=== PATIENT | female | born 1970 | race African-American/Black ===

== ENCOUNTER 2019-07-26 09:19 | Emergency (ER) | payer OTHER ==
[~2019-07-26] VITALS: Ht 160 cm; Wt 99.8 kg
--- OUTSIDE RECORDS SUMMARY | 2019-07-26 09:22 | XMS REPORT ---
[facility] Address Unknown Phone Unavailable Care Team Providers Care Front Office Associate Name Role Phone Unavailable Unavailable Payers Payer Name Policy Type Policy Number Effective Date Expiration Date Problems This patient has no known problems. Allergies, Adverse Reactions, Alerts Allergy Name Allergy Type Status Severity Reaction(s) Onset Date Inactive Date Treating Clinician Comments No Known Allergies DA Active U 2017-01-16 00:00:00 Medications This patient has no known medications. Encounters Start Date/Time End Date/Time Encounter Type Admission Type Attending Clinicians Care Facility Care Department Encounter ID 2018-08-28 00:00:00 2018-08-28 00:00:00 Outpatient [facility] [id number] 2018-06-11 00:00:00 2018-06-11 00:00:00 Outpatient [facility] [id number] 2018-06-07 00:00:00 2018-06-07 00:00:00 Outpatient [facility] [id number] 2018-05-29 10:15:45 2018-05-29 10:15:45 Outpatient [facility] [id number] 2018-04-30 00:00:00 2018-04-30 00:00:00 Outpatient [facility] [id number] 2018-04-28 18:19:00 2018-04-28 18:19:00 Emergency [id number] 2018-04-26 00:00:00 2018-04-26 00:00:00 Outpatient [facility] [id number] 2018-03-27 08:23:00 2018-03-27 08:23:00 Outpatient [facility] [id number] 2018-03-20 00:00:00 2018-03-20 00:00:00 Outpatient [facility] [id number] 2018-03-20 00:00:00 2018-03-20 00:00:00 Outpatient [facility] [id number] 2018-03-19 00:00:00 2018-03-19 00:00:00 Outpatient [facility] [id number] 2018-02-21 09:15:26 2018-02-21 09:15:26 Outpatient [facility] [id number] 2018-02-07 11:45:46 2018-02-07 11:45:46 Emergency [facility] [id number] 2018-02-07 10:22:03 2018-02-07 10:22:03 Emergency [facility] [id number] 2018-01-18 09:39:30 2018-01-18 09:39:30 Outpatient [facility] [id number] 2018-01-18 00:00:00 2018-01-18 00:00:00 Outpatient [facility] [id number] 2018-01-11 12:41:30 2018-01-11 12:41:30 Outpatient [facility] [id number] 2018-01-09 07:39:00 2018-01-09 07:39:00 Outpatient [facility] [id number] 2017-11-26 00:00:00 2017-11-26 00:00:00 Outpatient [facility] [id number] 2017-11-23 08:33:20 2017-11-23 08:33:20 Outpatient [facility] [id number] 2017-11-13 00:00:00 2017-11-13 00:00:00 Outpatient [facility] [id number] 2017-11-08 08:34:04 2017-11-08 08:34:04 Outpatient [facility] [id number] 2017-10-16 00:00:00 2017-10-16 00:00:00 Outpatient [facility] [id number] 2017-10-15 13:49:16 2017-10-15 13:49:16 Outpatient [facility] [id number] 2017-09-17 13:34:38 2017-09-17 13:34:38 Outpatient [facility] [id number] 2017-09-13 11:15:01 2017-09-13 11:15:01 Outpatient [facility] [id number] 2017-08-31 12:17:43 2017-08-31 12:17:43 Outpatient [facility] [id number] 2017-08-29 10:09:44 2017-08-29 10:09:44 Outpatient [facility] [id number] 2017-08-27 12:52:22 2017-08-27 12:52:22 Outpatient [facility] [id number] 2017-08-23 13:27:26 2017-08-23 13:27:26 Outpatient [facility] [id number] 2017-08-23 13:07:02 2017-08-23 13:07:02 Outpatient [facility] [id number] 2017-08-16 09:42:38 2017-08-16 09:42:38 Outpatient [facility] [id number] 2017-08-14 09:13:42 2017-08-14 09:13:42 Outpatient [facility] [id number] 2017-08-13 07:34:05 2017-08-13 07:34:05 Outpatient [facility] [id number] 2017-07-30 09:00:12 2017-07-30 09:00:12 Outpatient [facility] [id number] 2017-07-13 09:56:54 2017-07-13 09:56:54 Outpatient [facility] [id number] 2017-07-13 08:41:05 2017-07-13 08:41:05 Outpatient [facility] [id number]
[2019-07-26] MEDS ORDERED: SODIUM CHLORIDE 0.9% 1000ML 1,000 ML IV STA (09:51)
[2019-07-26] MEDS ORDERED: PANTOPRAZOLE 40 MG 10ML VIAL IV NR (10:00)
[2019-07-26] MEDS ORDERED: LIDOCAINE VISC 2% SOLN 15 ML UDC PO ONE (10:15)
[2019-07-26] MEDS ORDERED: BELLADONNA ALK/PHENOBARBITAL 5 ML UDC PO ONE (10:15)
[2019-07-26] MEDS ORDERED: MAGNESIUM/ALUMINUM/SIMETHICONE 30 ML UDC PO ONE (10:15)
[2019-07-26 10:23] LABS: BASOPHILS % 0.7 % (0.0-1.0); EOSINOPHILS # (AUTO) 0.1 (0.0-0.4); EOSINOPHILS % 1.7 % (0.0-6.0); HEMATOCRIT 44.2 % (34.2-44.1); HEMOGLOBIN 14.5 g/dL (12.0-16.0); LYMPHOCYTES # (AUTO) 1.5 (1.0-3.2); LYMPHOCYTES % 26.9 % (18.0-39.1); MEAN CORPUSCULAR HEMOGLOBIN 28.2 pg (28-32); MEAN CORPUSCULAR HGB CONC 32.8 g/dL (31-35); MONOCYTES # (AUTO) 0.5 (0.2-0.8); MONOCYTES % 7.9 % (4.4-11.3); NEUTROPHILS # (AUTO) 3.6 (2.1-6.9); NEUTROPHILS % 62.3 % (38.7-80.0); PLATELET COUNT 222 x10e3/uL (140-360); RED BLOOD COUNT 5.14 x10e6/uL (3.6-5.1); RED CELL DISTRIBUTION WIDTH 15.4 % (11.7-14.4)
[2019-07-26 10:27] LABS: BILIRUBIN,URINE NEGATIVE (NEGATIVE); CLARITY,URINE CLEAR (CLEAR); COLOR,URINE YELLOW (YELLOW); KETONES,URINE TRACE (NEGATIVE); LEUKOCYTE ESTERASE ,URINE NEGATIVE (NEGATIVE); NITRITE,URINE NEGATIVE (NEGATIVE); PROTEIN,URINE DIPSTICK NEGATIVE (NEGATIVE); URINE UROBILINOGEN 0.2 mg/dL (0.2 - 1)
[2019-07-26 10:39] LABS: BACTERIA,URINE MODERATE /HPF; RBC,URINE 0-5 /HPF (0-5); WBC,URINE (MAN) 0-5 /HPF (0-5)
[2019-07-26 10:40] LABS: EPITHELIAL CELLS,URINE FEW /LPF; MUCUS,URINE FEW (RARE)
[2019-07-26] MEDS ORDERED: ONDANSETRON HCL INJ 2MG/ML 2ML 2 MG/ML VIAL IV STA (10:40)
[2019-07-26 10:41] LABS: ALANINE AMINOTRANSFERASE 18 IU/L (0-55); ALBUMIN 3.9 g/dL (3.5-5.0); ALBUMIN/GLOBULIN RATIO 1.1 (0.8-2.0); ALKALINE PHOSPHATASE 98 IU/L (40-150); AMYLASE 61 U/L (25-125); ANION GAP 13.6 mmol/L (8-16); BLOOD UREA NITROGEN 11 mg/dL (7-26); BUN/CREATININE RATIO 13 (6-25); CALCIUM 9.5 mg/dL (8.4-10.2); CARBON DIOXIDE 25 mmol/L (22-29); CHLORIDE 105 mmol/L (98-107); CREATINE KINASE 49 IU/L (29-168); CREATININE, SERUM 0.83 mg/dL (0.57-1.11); EST GLOMERULAR FILTRATION RATE > 60 ML/MIN (60-); GLUCOSE 121 mg/dL (74-118); LIPASE 10 U/L (8-78); POTASSIUM 3.6 mmol/L (3.5-5.1); SODIUM 140 mmol/L (136-145)
--- NOTE | 2019-07-26 11:07 | NUR ---
DR. CHEN SPOKE WITH DR. NÚÑEZ AND HE WILL CONTACT PATIENT AND DO UPPER GI ON SUNDAY
--- NOTE | 2019-07-26 11:51 | NUR ---
DR. CHEN AT BEDSIDE UPDATING PATIENT ON DISCHARGE INFORMATION AND FOLLOW UP WITH DR. TRAN
== END 2019-07-26 11:53 | disposition home or self-care (01) ==
LOC: ER 09:19
DX: R10.13 Epigastric pain (principal); R11.2 Nausea with vomiting, unspecified; K29.00 Acute gastritis without bleeding; I10 Essential (primary) hypertension; E11.9 Type 2 diabetes mellitus without complications; K21.9 Gastro-esophageal reflux disease without esophagitis; F17.210 Nicotine dependence, cigarettes, uncomplicated
CPT/HCPCS: 36415; 80053; 81001; 82150; 82550; 82553; 83690; 84484; 85025; 87086; 99284; C9113; J2405; J7030